=== PATIENT | female | born 1980 | race Caucasian/White ===

== ENCOUNTER → 2024-08-19 11:45 | Outpatient (BNVA) | payer OTHER, SELFPAY | PROVIDERS: Visit Provider Physician Assistant | DX: S80.01XA Contusion of right knee, initial encounter (principal); S80.211A Abrasion, right knee, initial encounter; S45.812A Laceration of other specified blood vessels at shoulder and upper arm level, left arm, initial encounter; M54.50 Low back pain, unspecified; W00.0XXA Fall on same level due to ice and snow, initial encounter | CPT/HCPCS: 73564; 99203 ==

== ENCOUNTER → 2024-08-21 15:21 | Outpatient (BNVA) | payer OTHER, SELFPAY | PROVIDERS: Visit Provider Physician Assistant Medical | DX: S80.01XA Contusion of right knee, initial encounter (principal); S80.02XA Contusion of left knee, initial encounter; S46.819A Strain of other muscles, fascia and tendons at shoulder and upper arm level, unspecified arm, initial encounter; S39.012A Strain of muscle, fascia and tendon of lower back, initial encounter; W00.0XXA Fall on same level due to ice and snow, initial encounter; Z02.79 Encounter for issue of other medical certificate | CPT/HCPCS: 99213 ==